=== PATIENT | female | born 1945 | race Caucasian/White ===

== ENCOUNTER → 2019-04-02 | Outpatient (REF) | payer MEDICARE, OTHER | LOC: M LAB REF 13:53 | PROVIDERS: ATTEND Internal Medicine | DX: E78.5 Hyperlipidemia, unspecified (principal); E78.41 Elevated Lipoprotein(a) ==

== ENCOUNTER → 2024-05-09 | Outpatient (REF) | payer MEDICARE ==
[2024-05-09 17:02] LABS: APPEARANCE, URINE CLEAR (CLEAR); BACTERIA, URINE AUTO NEGATIVE (NEGATIVE); BILIRUBIN, URINE AUTO NEGATIVE (NEGATIVE); BLOOD, URINE BLOOD NEGATIVE (NEGATIVE); COLOR, URINE STRAW (YELLOW); GLUCOSE, URINE (UA) AUTO NEGATIVE (NEGATIVE); KETONE, URINE AUTO NEGATIVE (NEGATIVE); LEUKOCYTE ESTERASE, URINE AUTO NEGATIVE (NEGATIVE); NITRITE, URINE AUTO NEGATIVE (NEGATIVE); PROTEIN, URINE AUTO NEGATIVE (NEGATIVE); RBC, URINE AUTO 0 /HPF (0-3); SPECIFIC GRAVITY URINE AUTO 1.001 (1.002-1.035); SQUAMOUS EPITHELIAL CELL UR AU 0 /HPF (0-6); UROBILINOGEN, URINE AUTO 0.2 mg/dL (0.0-2.0); WBC, URINE AUTO 0 /HPF (0-3)
== END ==
LOC: M LAB REF 16:10
PROVIDERS: ATTEND Internal Medicine
DX: R31.21 Asymptomatic microscopic hematuria (principal)

== ENCOUNTER → 2024-05-22 | Outpatient (REF) | payer MEDICARE ==
[2024-05-22 15:14] LABS: FOLATE > 24.0 NG/ML (>5.4)
[2024-05-22 15:37] LABS: VITAMIN B12 LEVEL 1229 PG/ML (211-911)
== END ==
LOC: M LAB REF 13:34
PROVIDERS: ATTEND Internal Medicine
DX: D72.819 Decreased white blood cell count, unspecified (principal); M81.0 Age-related osteoporosis without current pathological fracture